=== PATIENT | female | born 1990 | race Hispanic/Latino ===

== ENCOUNTER 2019-05-21 12:46 | Emergency (ER) | payer OTHER, SELFPAY ==
[2019-05-21] MEDS ORDERED: Ondansetron PF 4 MG/2 ML Vial ONE (13:27)
[2019-05-21] MEDS ORDERED: Acetaminophen 500 MG TAB ONE (13:27)
[2019-05-21] MEDS ORDERED: Ketorolac Tromethamine 30 MG/ML VIAL ONE (13:34)
[2019-05-21 13:50] LABS: #Lymphocytes 1.4 thou/uL (1.20-3.40); #Neutrophils 8.9 thou/uL (1.40-6.50); %Basophils 0.3 % (0.0-1.0); %Eosinophils 0.1 % (0.0-10.0); %Lymphocytes 12.7 % (21.0-51.0); %Monocytes 8.8 % (0.0-10.0); %Neutrophils 78.1 % (42.0-75.0); Hemoglobin 12.8 g/dL (12.0-16.0); Mean Corpuscular HGB CONC 32.8 g/dL (32.0-36.0); Mean Corpuscular Hemoglobin 28.2 pg (27.0-31.0); Mean Corpuscular Volume 85.9 fL (78.0-98.0); Mean Platelet Volume 8.7 fL (7.4-10.4); Platelet Count 221 thou/uL (130-400); RBC Distribution Width 12.8 % (11.5-14.5); Red Blood Cell (RBC) Count 4.56 mill/uL (4.20-5.40); White Blood Cell (WBC) Count 11.3 thou/uL (4.8-10.8)
[2019-05-21 14:00] LABS: Bacteria/HPF 4+ HPF (None Seen); Bilirubin Negative (Negative); Blood, Urine 3+ (Negative); Clarity Turbid (Clear); Glucose, Urine (Dipstick) Normal (Negative); Leukocyte 500 Leu/uL (Negative); Nitrite Negative (Negative); Protein, Urine (Dipstick) 100 mg/dL (Neg-Trace); RBC/HPF Greater than 50 HPF (0-3); Urobilinogen 3 mg/dL (Less than 2); WBC/HPF Greater than 50 HPF (0-3)
[2019-05-21 14:14] LABS: ALT (SGPT) 46 U/L (8-55); AST (SGOT) 13 U/L (5-34); Albumin 4.3 g/dL (3.5-5.0); Alkaline Phosphatase 76 U/L (40-150); Anion Gap 14 mmol/L (10-20); BUN (Urea Nitrogen) 7 mg/dL (7.0-18.7); Bilirubin, Total 0.6 mg/dL (0.2-1.2); CK (CPK) 50 U/L (29-168); Calc. Creatinine Clearance 0 mL/min (70-130); Calcium 9.4 mg/dL (7.8-10.44); Carbon Dioxide 23 mmol/L (22-29); Chloride 99 mmol/L (98-107); Estimated GFR-MDRD 83; Glucose 134 mg/dL (70-105); Potassium 3.4 mmol/L (3.5-5.1); Protein, Total 8.3 g/dL (6.0-8.3); Sodium 133 mmol/L (136-145)
[2019-05-21 14:21] LABS: BHCG - Serum Negative (NEGATIVE); Pregs Control Background? CLEAR/WHITE (CLR/WHITE); Pregs Control Bar Appear? YES (CONTROL BAR)
[2019-05-21] MEDS ORDERED: cefTRIAXone\\ROCEPHIN 1 GM VIAL ONE (14:37)
== END 2019-05-21 15:24 | disposition home or self-care (01) ==
LOC: ERS 12:46
DX: N30.00 Acute cystitis without hematuria (principal); N12 Tubulo-interstitial nephritis, not specified as acute or chronic
CPT/HCPCS: 80053; 81003; 81015; 82550; 84703; 85025; 87077; 87086; 87186; 96361; 96365; 96375; J0696; J1885; J2405

== ENCOUNTER 2019-07-15 13:07 | Outpatient (CLI) | payer OTHER ==
--- NOTE | 2019-07-15 14:36 | ULT ---
Exam: Bilateral renal ultrasound complete: HISTORY: Polycystic kidney disease COMPARISON: None FINDINGS: Right kidney: 13.2 x 7.3 x 6.1 cm Left kidney: 13.1 x 6.4 x 5.7 cm. No renal hydronephrosis. No evidence for abnormal perinephric process. Multiple bilateral renal cysts up to 2.7 x 3.1 x 3.8 cm on the right side and a cluster of cysts invo lving the left kidney measuring 4.0 x 4.3 x 4.9 cm. Unremarkable appearing bladder. IMPRESSION: Multiple bilateral renal cysts. No renal hydronephrosis. The patient has hematuria or other significant acute symptoms, consider follow-up abdomen and pelv ic CT scan with renal mass protocol.
== END 2019-07-15 13:08 | disposition home or self-care (01) ==
LOC: BICULT 13:07
PROVIDERS: ATTEND Family Medicine
DX: Q61.3 Polycystic kidney, unspecified (principal); R82.998 Other abnormal findings in urine; N28.1 Cyst of kidney, acquired
CPT/HCPCS: 76770